=== PATIENT | female | born 1925 | race Asian ===

== ENCOUNTER 2016-08-22 08:38 | Inpatient (IN) | payer OTHER | END 2016-09-22 08:00 | disposition still patient (30) | LOC: PAVA 08:38 | PROVIDERS: ADMIT Internal Medicine | DX: Z51.89 Encounter for other specified aftercare (principal) ==

== ENCOUNTER 2016-09-22 09:00 | Inpatient (IN) | payer OTHER | END 2016-10-23 08:38 | disposition still patient (30) | LOC: PAVA 09:00 | PROVIDERS: ADMIT Internal Medicine | DX: Z51.89 Encounter for other specified aftercare (principal) ==

== ENCOUNTER 2016-09-27 05:49 | Outpatient (CLI) | payer OTHER ==
[2016-09-27 06:17] LABS: PLATELET COUNT 236 K/uL (152-353)
[2016-09-27 06:48] LABS: POTASSIUM 4.5 mmol/L (3.6-5.2); SODIUM 139 mmol/L (136-145)
== END 2016-09-27 06:49 | disposition home or self-care (01) ==
LOC: LAB 05:49
PROVIDERS: Internal Medicine
DX: Z79.899 Other long term (current) drug therapy (principal); E55.9 Vitamin D deficiency, unspecified; I10 Essential (primary) hypertension; Z51.81 Encounter for therapeutic drug level monitoring; D64.9 Anemia, unspecified
CPT/HCPCS: 36415; 80053; 80061; 82248; 82306; 82728; 83036; 85027

== ENCOUNTER 2016-09-30 13:40 | Outpatient (CLI) | payer OTHER | END 2016-09-30 19:25 | disposition home or self-care (01) | LOC: LAB 13:40 | DX: R82.5 Elevated urine levels of drugs, medicaments and biological substances (principal); R82.99 Other abnormal findings in urine | CPT/HCPCS: 81000; 87077; 87086; 87088; 87186 ==

== ENCOUNTER 2016-10-23 09:15 | Inpatient (IN) | payer OTHER | END 2016-11-20 08:18 | disposition still patient (30) | LOC: PAVA 09:15 | PROVIDERS: ADMIT Internal Medicine | DX: Z51.89 Encounter for other specified aftercare (principal) ==

== ENCOUNTER 2016-11-20 08:47 | Inpatient (IN) | payer OTHER | END 2016-12-21 08:02 | disposition still patient (30) | LOC: PAVA 08:47 | PROVIDERS: ADMIT Internal Medicine | DX: Z51.89 Encounter for other specified aftercare (principal) ==

== ENCOUNTER 2016-12-21 09:51 | Inpatient (IN) | payer OTHER | END 2017-01-20 08:31 | disposition still patient (30) | LOC: PAVA 09:51 | PROVIDERS: ADMIT Internal Medicine | DX: Z51.89 Encounter for other specified aftercare (principal) ==

== ENCOUNTER 2016-12-23 09:23 | Outpatient (CLI) | payer OTHER | END 2016-12-23 10:23 | disposition home or self-care (01) | LOC: LAB 09:23 | DX: E11.9 Type 2 diabetes mellitus without complications (principal) | CPT/HCPCS: 36415; 83036 ==

== ENCOUNTER 2017-01-13 16:36 | Outpatient (CLI) | payer OTHER | END 2017-01-13 19:35 | disposition home or self-care (01) | LOC: LAB 16:36 | DX: Z16.24 Resistance to multiple antibiotics (principal) | CPT/HCPCS: 87081 ==

== ENCOUNTER 2017-02-07 17:14 | Outpatient (CLI) | payer OTHER | END 2017-02-07 18:15 | disposition home or self-care (01) | LOC: LAB 17:14 | DX: R82.99 Other abnormal findings in urine (principal) | CPT/HCPCS: 36415; 81000; 84550 ==

== ENCOUNTER 2017-02-08 05:57 | Outpatient (CLI) | payer OTHER | END 2017-02-08 19:51 | disposition home or self-care (01) | LOC: LAB 05:57 | DX: E79.0 Hyperuricemia without signs of inflammatory arthritis and tophaceous disease (principal) ==